=== PATIENT | male | born 1955 | race Two or more races ===

== ENCOUNTER 2022-08-07 22:34 | Emergency (ER) | payer MEDICARE ==
[~2022-08-07] VITALS: Ht 165.1 cm; Wt 145.0 kg
[2022-08-07 22:37] VITALS: BP 110/71
[2022-08-07 23:56] LABS: BASOPHILS % 0.2 % (0.0-2.0); HEMATOCRIT. 33.8 % (42.0-52.0); LYMPHOCYTES % 9.3 % (20.0-50.0); MEAN CORPUSCULAR HEMOGLOBIN 28.1 pg (28.0-32.0); MEAN CORPUSCULAR VOLUME 85.9 fL (80.0-94.0); MEAN PLATELET VOLUME 6.3 fl (7.4-10.4); MONOCYTES % 3.7 % (2.0-8.0); NEUTROPHILS % 86.8 % (40.0-76.0); PLATELET 348 x1000/uL (130-400); RED BLOOD CELL COUNT 3.93 mill/uL (4.7-6.1); RED CELL DISTRIBUTION WIDTH 15.2 % (11.6-14.6)
[2022-08-08] MEDS ORDERED: ACETAMINOPHEN 325MG TABLET PO STA (01:19)
[2022-08-08] MEDS ORDERED: ONDANSETRON 4MG ODT PO NR (02:12)
[2022-08-08] MEDS ORDERED: ACET-2708 PO (02:20)
== END 2022-08-08 08:09 | disposition home or self-care (01) ==
LOC: ER 22:34
DX: S00.93XA Contusion of unspecified part of head, initial encounter (principal); M79.605 Pain in left leg; M25.511 Pain in right shoulder; I10 Essential (primary) hypertension; R51.9 Headache, unspecified; Z86.59 Personal history of other mental and behavioral disorders; V09.20XA Pedestrian injured in traffic accident involving unspecified motor vehicles, initial encounter; Y93.89 Activity, other specified; Y92.89 Other specified places as the place of occurrence of the external cause; Y99.8 Other external cause status
CPT/HCPCS: 36415; 70450; 73030; 73590; 73630; 80048; 85025; 93971; 99285; Q0162